=== PATIENT | female | born 1975 ===

== ENCOUNTER → 2016-03-10 | Emergency (ER) | payer MEDICARE ==
[2016-03-10 09:40] VITALS: BP 142/73
--- NOTE | 2016-03-19 09:47 | ED ---
Luis Carlos Holcomb Adam, scribed for Suleman Rodriguez MD on 03/10/16 at 1137 . Complex/Multi-Sys Presentation - HPI Summary HPI Summary: Pt is a 40 year old female presenting with pain in her lower back, pelvis, and both legs. She reports Hx of back surgery and states that she has had this pain before. She believes the pain was exacerbated this week by moving homes. The pain is worse with movement. She denies fever and chills. No change in BM's or urination. FMHx of DM, cardiac disease, and breast cancer. - History Of Current Complaint Chief Complaint: EDBackInjuryPain Time Seen by Provider: 03/10/16 11:17 Hx Obtained From: Patient Onset/Duration: Gradual Onset, Lasting Days, Still Present Timing: Constant Severity Currently: Moderate Severity Initially: Moderate Location: Pain At: - Lower back, pelvis, BLE Character: Throbbing Aggravating Factor(s): Movement Alleviating Factor(s): Rx painkillers - Allergies/Home Medications Allergies/Adverse Reactions: Allergies Allergy/AdvReac Type Severity Reaction Status Date / Time Aripiprazole [From Abilify] Allergy Severe Muscle Ache Verified 03/10/16 09:39 PMH/Surg Hx/FS Hx/Imm Hx Endocrine/Hematology History: Denies: Hx Diabetes, Hx Thyroid Disease Cardiovascular History: Denies: Hx Hypertension Respiratory History: Denies: Hx Asthma, Hx Chronic Obstructive Pulmonary Disease (COPD) GI History: Denies: Hx Ulcer - Surgical History Surgery Procedure, Year, and Place: discectomies L4-5 1996, L3-4 2005 Infectious Disease History: No Infectious Disease History: Denies: Hx Hepatitis, Hx Human Immunodeficiency Virus (HIV), Traveled Outside the [place] in Last 30 Days - Family History Known Family History: Positive: Cardiac Disease, Diabetes, Other - Breast CA - Social History Occupation: Disabled Lives: Alone Alcohol Use: Weekly Hx Substance Use: Yes Substance Use Type: Reports: Cocaine, Marijuana Substance Use Comment - Amount & Last Used: 09/21/13 Hx Tobacco Use: No Smoking Status (MU): Never Smoked Tobacco Review of Systems Constitutional: Negative Negative: Fever Positive: Myalgia - Lower back, pelvis, BLE Skin: Negative Negative: Bruising All Other Systems Reviewed And Are Negative: Yes Physical Exam - Summary Physical Exam Summary: GENERAL: Awake, alert, oriented, no acute distress, very pleasant HEENT: Head is normocephalic, atraumatic, anicteric sclera, clear conjunctiva, mucous membranes moist, no erythema, no discharge, no lesions, neck is supple, trachea is midline, no JVD CARDIAC: Regular rate and rhythm, S1, S2, no rub, no murmur, no gallop, 2+ radial and pedal pulses bilaterally RESPIRATORY: Clear to auscultation bilaterally with no rales, rhonchi, or wheezes, non-tender ABDOMEN: Bowel sounds positive, no bruit, soft, non-tender, no CVA tenderness EXTREMITIES: No edema, warm, dry, moving all extremities in a grossly normal manner NEUROLOGICAL: Mood is appropriate, moving all extremities in a grossly normal manner Triage Information Reviewed: Yes Vital Signs On Initial Exam: Initial Vitals Temp Pulse Resp BP Pulse Ox 98.3 F 87 16 142/73 99 03/10/16 09:35 03/10/16 09:35 03/10/16 09:35 03/10/16 09:35 03/10/16 09:35 Vital Signs Reviewed: Yes Diagnostics - Vital Signs Vital Signs Temp Pulse Resp BP Pulse Ox 03/10/16 09:35 98.3 F 87 16 142/73 99 - Laboratory Lab Statement: Any lab studies that have been ordered have been reviewed, and results considered in the medical decision making process. Complex Multi-Symp Course/Dx - Diagnoses Provider Diagnoses: Acute on chronic back pain Discharge - Discharge Plan Condition: Stable Disposition: HOME Patient Education Materials: Back Pain (ED) Referrals: Lizabeth Knapp MD [Primary Care Provider] - Additional Instructions: Follow up with Dr. Knapp. The documentation as recorded by the Luis Carlos bautista Adam accurately reflects the service I personally performed and the decisions made by , Suleman Rodriguez MD.
== END | disposition home or self-care (01) ==
LOC: ED 09:28
DX: M54.5 Low back pain (principal); G89.29 Other chronic pain; Z98.890 Other specified postprocedural states
CPT/HCPCS: 99282

== ENCOUNTER 2016-11-18 12:02 | Emergency (ER) | payer MEDICARE ==
[2016-11-18 12:21] VITALS: BP 130/81
--- NOTE | 2016-11-18 13:45 | UC ---
Skin Complaint HPI - History of Current Complaint Chief Complaint: UCUpperExtremity Time Seen by Provider: 11/18/16 12:48 Stated Complaint: FINGER INFECTION Hx Obtained From: Patient - no known cause of swelling L middle finger, started over 3 days, swelling, redness and now a big white spot Hx Last Menstrual Period: 11/02/16 ?: No Onset/Duration: Gradual Onset Timing: Constant Onset Severity: Mild Current Severity: Moderate Location: Hand (Left) - 3rd finger Aggravating: Touch Alleviating: Nothing - tried warm water soak Associated Signs & Symptoms: Positive: Negative - Allergy/Home Medications Allergies/Adverse Reactions: Allergies Allergy/AdvReac Type Severity Reaction Status Date / Time Aripiprazole [From Abilify] Allergy Severe Muscle Ache Verified 11/18/16 12:21 Home Medications: Home Medications NK [No Home Medications Reported] 11/18/16 [History Confirmed 11/18/16] Review of Systems Constitutional: Negative Respiratory: Negative Cardiovascular: Negative Neurovascular: Negative Neurological: Negative Psychological: Negative Is Patient Immunocompromised?: No All Other Systems Reviewed And Are Negative: Yes PMH/Surg Hx/FS Hx/Imm Hx Previously Healthy: Yes Endocrine History: Dyslipidemia GI/ History: Other - obesity Other GI/ History: obesity Psychological History: Anxiety, Depression, Post Traumatic Stress Disorder - Surgical History Surgical History: Yes Surgery Procedure, Year, and Place: discectomies L4-5 1996, L3-4 2005 - Family History Known Family History: Positive: Cardiac Disease, Diabetes, Other - Breast CA - Social History Occupation: Disabled Lives: Alone Alcohol Use: Rare Substance Use Type: None Substance Use Comment - Amount & Last Used: 09/21/13 Smoking Status (MU): Never Smoked Tobacco Household Exposure Type: Cigarettes Physical Exam Triage Information Reviewed: Yes Appearance: No Pain Distress, Obese Vital Signs: Initial Vital Signs Temp 97.9 F 11/18/16 12:17 Pulse 93 11/18/16 12:17 Resp 18 11/18/16 12:17 BP 130/81 11/18/16 12:17 Pulse Ox 97 11/18/16 12:17 Vital Signs Reviewed: Yes Respiratory Exam: Normal Cardiovascular Exam: Normal Neurological Exam: Normal Psychological Exam: Normal Skin: Positive: Other - L 3rd distal finger swollen, inflammed, tender with paronychia nail border Course/Dx - Course Course Of Treatment: Time-out completed. L 3rd finger cleansed with NSS and hibiclens solution, small incision made with #11 blade and mod amount purulent drainage drained. wound throroughly cleansed with HIbiclens and NSS again and sterile dressing applied. pt ivette procedure well - Differential Diagnoses - Skin Complaint Differential Diagnoses: Other - paronychia - Diagnoses Provider Diagnoses: paronychia L 3rd finger Discharge - Discharge Plan Condition: Good Disposition: HOME Patient Education Materials: Paronychia (ED) Referrals: Lizabeth Knapp MD [Primary Care Provider] - 2 Days Additional Instructions: elevate hand and keep clean and dry soak in warm soapy water 2-3 times a day start cephalexin antibiotic as directed
== END 2016-11-18 13:54 | disposition home or self-care (01) ==
LOC: UCEAST 12:02
DX: L03.012 Cellulitis of left finger (principal); E78.5 Hyperlipidemia, unspecified; E66.9 Obesity, unspecified; F41.9 Anxiety disorder, unspecified; F32.9 Major depressive disorder, single episode, unspecified; Z88.8 Allergy status to other drugs, medicaments and biological substances; Z77.22 Contact with and (suspected) exposure to environmental tobacco smoke (acute) (chronic)
CPT/HCPCS: 10060; 99211; G0463